=== PATIENT | male | born 1995 | race Caucasian/White ===

== ENCOUNTER → 2017-12-25 | Outpatient (CLI) | payer OTHER, BC ==
[~2017-12-25] MED LIST: ALBU8.5H12 IH; CEP500 PO; CITA-139 PO; IOPAMIDOL 76% 75 ML INFUS BTL 75 ML ONE; LOR5/325 PO; MULT1TAB64 PO
[2017-12-25 13:31] LABS: PLATELET COUNT, AUTOMATED 260 K/uL (150-450)
--- NOTE | 2017-12-25 16:35 | RADIOLOGY IMAGING REPORT ---
FACILITY: [facility] PATIENT NAME: Vasquez Oliver : 1995 MR: [id number] V: [id number] EXAM DATE: ORDERING PHYSICIAN: SAKSHI QURESHI TECHNOLOGIST: Location: [facility] Patient: Vasquez Oliver : 1995 Visit/Account:[id number] Date of Sevice: 12/25/2017 ABDOMEN/PELVIS WITH CONTRAST HISTORY: Right lower quadrant abdomen pain and nausea TECHNIQUE: Following administration of IV contrast contiguous axial images acquired through the abdom en/pelvis. Coronal and sagittal reformatting also performed. Dose Lowering Technique One of the following dose optimization techniques was utilized in the performance of this exam: Autom ated exposure control; adjustment of the mA and/or kV according to the patient's size; or use of an i terative reconstruction technique. Specific details can be referenced in the facility's radiology C T exam operational policy. CONTRAST: 75 mL Isovue-370 COMPARISON: None. FINDINGS: Visualized lung bases: Negative. Hepatobiliary: Negative. Spleen: Negative. Adrenals: Negative. Pancreas: Negative. Kidneys ureters or bladder: Negative. Genitalia: The seminal vesicles appear mildly dilated bilaterally. The prostate gland appears heter ogeneous and could be related to prostatitis. GI: The appendix is visualized and does not appear dilated nor inflamed and is retrocecal in locatio n. There is no evidence of bowel wall thickening or bowel distention. Vessels/spaces/nodes: Negative. Bones/soft tissues: Schmorl's nodes are seen in the lower thoracic spine Additional findings: None pertinent. IMPRESSION: The appendix is visualized and does not appear inflamed or dilated. Incidentally noted are mildly dilated seminal vesicles bilaterally and of inhomogeneous prostate glan d which could be related to prostatitis. Clinical correlation needed Report Dictated By: Jelena Tabor MD at 12/25/2017 4:26 PM Report E-Signed By: Jelena Tabor MD at 12/25/2017 4:32 PM WSN:[email or web address]
== END ==
LOC: LAB 13:16
PROVIDERS: ATTEND Surgery
DX: R10.31 Right lower quadrant pain (principal); R11.0 Nausea
CPT/HCPCS: 36415; 74177; 85025; Q9967; 82310; 82374; 82435; 82565; 82947; 84132; 84295; 84520